=== PATIENT | male | born 1955 | race Caucasian/White ===

== ENCOUNTER 2022-04-11 11:35 | Emergency (ER) | payer MEDICARE ==
[~2022-04-11] VITALS: Ht 177.8 cm; Wt 77.1 kg
[2022-04-11 11:42] VITALS: BP_SYST 106; BP_SYST 156
--- NOTE | 2022-04-11 12:00 | NUR ---
PATIENT ALBER FROM HOME FELL LAST NIGHT AND HURT HIS HEAD, DENIED H/A AT THIS TIME AWAITING FOR EDP FOR INITIAL ASSESSMENT.
--- NOTE | 2022-04-11 12:06 | NUR ---
EDP SEEN PATIENT WITH ORDER ROCHELLE OUT.
--- NOTE | 2022-04-11 12:30 | NUR ---
PATIENT ASSISTED WITH URINAL.
[2022-04-11 12:57] VITALS: BP_SYST 112
--- NOTE | 2022-04-11 15:10 | NUR ---
ETA 1600 WITH CAM SPOKE TO CHELSEA CONNELL [facility] [employer]
--- NOTE | 2022-04-11 16:01 | NUR ---
AMBULANCE AT [facility] FOR TRANSPORTATION.
--- NOTE | 2022-04-11 16:08 | NUR ---
Patient given written and verbal discharge instructions and verbalizes understanding. ER MD discussed with patient the results and treatment provided. Patient in stable condition. ID arm band removed. IV catheter removed intact and dressing applied, no active bleeding. Rx of given. Patient educated on pain management and to follow up with PMD. Pain Scale0. Opportunity for questions provided and answered. Medication side effect fact sheet provided. LEFT WITH [facility].
== END 2022-04-11 16:08 | disposition home or self-care (01) ==
LOC: SED 11:35
DX: S09.90XA Unspecified injury of head, initial encounter (principal); I10 Essential (primary) hypertension; Z79.899 Other long term (current) drug therapy; W18.30XA Fall on same level, unspecified, initial encounter; Y93.89 Activity, other specified; Y92.89 Other specified places as the place of occurrence of the external cause; Y99.8 Other external cause status
CPT/HCPCS: 70450-TC; 76376; 99284

== ENCOUNTER 2022-08-25 02:04 | Emergency (ER) | payer MEDICARE ==
[2022-08-25 02:14] VITALS: BP_SYST 142
--- NOTE | 2022-08-25 02:15 | NUR ---
PT WAS BIB [facility], C/O SOB. PT ON 6L SIMPLE MASK, WITH ALBUTEROL TX. PER EMT, SPO2@92% ON ROOM AUR ON ARRIVAL. PT LABORED BREATHING, NOT ANSWERING QUESTIONS.
[2022-08-25 02:27] LABS: RED BLOOD CELL COUNT(AUTO) 4.79 MIL/uL (4.2-6.2)
[2022-08-25 02:31] LABS: BASOPHILS % (AUTO) 0.5 % (0.0-2.0); EOSINOPHILS # (AUTO) 0.2 K/uL (0.0-0.4); EOSINOPHILS % (AUTO) 2.2 % (0.0-4.0); HEMATOCRIT 42.2 % (36-54); HEMOGLOBIN 14.5 g/dL (14.0-18.0); LYMPHOCYTES # (AUTO) 1.7 K/uL (1.0-5.5); LYMPHOCYTES % (AUTO) 18.4 % (20.5-51.5); MEAN CORPUSCULAR HEMOGLOBIN 30 pg (27-31); MEAN CORPUSCULAR HGB CONC 34 % (32-36); MEAN CORPUSCULAR VOLUME 88 fL (79.0-98.0); MONOCYTES # (AUTO) 0.5 K/uL (0.0-1.0); MONOCYTES % (AUTO) 5.7 % (1.7-9.3); NEUTROPHILS # (AUTO) 6.6 K/uL (1.8-7.7); NEUTROPHILS % (AUTO) 73.2 % (40.0-70.0); PLATELET COUNT (AUTO) 188 K/uL (130-430); RED CELL DISTRIBUTION WIDTH 14.1 % (9.0-15.0)
[2022-08-25] MEDS ORDERED: cefTRIAXone 1 GM IVPB PREMIX 50 ML IV ONE (02:45)
[2022-08-25 03:35] LABS: BILIRUBIN,URINE NEGATIVE (NEGATIVE); CLARITY/URINE CLEAR (CLEAR); COLOR,URINE YELLOW (YELLOW); GLUCOSE,URINE NEGATIVE (NEGATIVE); KETONES,URINE NEGATIVE (NEGATIVE); LEUKOCYTE ESTERASE ,URINE NEGATIVE (NEGATIVE); NITRITE, URINE NEGATIVE (NEGATIVE); PROTEIN URINE NEGATIVE (NEGATIVE); UROBILINOGEN,URINE 0.2 (0.2-1.0)
[2022-08-25 04:03] LABS: BLOOD, URINE TRACE (NEGATIVE)
--- NOTE | 2022-08-25 04:41 | NUR ---
PT VSS, NAD, CONNECTED TO VS MONITOR. PT HAS EYES CLOSED APPEARS ASLEEP, NO COMPLAINTS SAFETY RAILS UP
[2022-08-25 05:01] LABS: ALANINE AMINOTRANSFERASE 16 U/L (12-78); ALBUMIN 3.8 g/dL (3.4-4.8); ANION GAP 11 (5-15); ASPARTATE AMINOTRANSFERASE 20 U/L (10-37); CALCIUM 8.9 mg/dL (8.4-11.0); CHLORIDE 102 mmol/L (98-107); CREATININE 0.78 mg/dL (0.55-1.30); GFR AFRICAN AMERICAN 127 mL/min (>90); GLUCOSE 103 mg/dL (70-99); TOTAL BILIRUBIN 0.5 mg/dL (0.0-1.0); UREA NITROGEN, BLOOD 16 mg/dL (8-21)
[2022-08-25] MEDS ORDERED: methylPREDNISolone SOD SUCC/PF 62.5 MG/ML VIAL IVP ONE (05:30)
--- NOTE | 2022-08-25 06:16 | NUR ---
PT APPEARS SLEEPING VSS, NAD, EVEN UNLABORED BREATHING SAFETY RAILS UP
--- NOTE | 2022-08-25 07:35 | NUR ---
REPORT GIVEN TO MALIK BANUELOS
--- NOTE | 2022-08-25 07:43 | NUR ---
Called [facility] per Dr. Watson's request. Dr. Barger is out but Dr. Fung will be calling back.
--- NOTE | 2022-08-25 08:09 | NUR ---
PT SET [facility] [phone] [facility] PAINTING [facility] ETA [phone]
--- NOTE | 2022-08-25 09:39 | NUR ---
PT CARE TRANFERRED TO [facility] WITH [facility]. PT STABLE FOR TRANFER
[2022-08-25 10:38] VITALS: BP_SYST 115
== END 2022-08-25 09:39 | disposition short-term general hospital (02) ==
LOC: SED 02:04
DX: J18.9 Pneumonia, unspecified organism (principal); R06.02 Shortness of breath; R07.9 Chest pain, unspecified; R09.02 Hypoxemia; J44.9 Chronic obstructive pulmonary disease, unspecified; I10 Essential (primary) hypertension; Z79.899 Other long term (current) drug therapy; Z20.822 Contact with and (suspected) exposure to COVID-19
CPT/HCPCS: 99285; 96365; 71045; 96375; 87426; 80053; 83880; 85025; 87040; 87086; 84484; 36415; 93005; 83605; 81003; 87804 ×2; J0696; J2930

== ENCOUNTER 2022-09-09 15:43 | Emergency (ER) | payer MEDICARE ==
[~2022-09-09] VITALS: Ht 170.2 cm; Wt 88.9 kg
[2022-09-09] MEDS ORDERED: NACL 0.9% 1,000 ML IV ONE (16:00)
[2022-09-09] MEDS ORDERED: ONDANSETRON HCL 4 MG/2 ML VIAL IVP ONE (16:00)
[2022-09-09] MEDS ORDERED: NALOXONE HCL 2 MG/2 ML SYR (NARCAN) IVP ONE (16:00)
--- NOTE | 2022-09-09 16:00 | NUR ---
Placed in room 04 . Placed on rn cardiac, blood pressure machine and pulse oximeter. To gown for exam. Side rails up. Report given to VIN HARDEN.
[2022-09-09 16:02] VITALS: BP_SYST 124
--- NOTE | 2022-09-09 16:02 | NUR ---
PATIENT BROUGHT IN ALS FROM HOME FOR TAKING AN EXTRA TABLET OF GABAPENTIN AND TRAZADONE. UNKNOWN DOSAGE. PATIENT IS LETHARGIC AND AROUSABLE TO VOICE. PATIENT ARRIVES WINNIE WITH HR IN THE 40S. NO ACUTE PAIN.
--- NOTE | 2022-09-09 16:05 | NUR ---
ER at bedside examining patient.
[2022-09-09] MEDS ORDERED: NALOXONE HCL 2 MG/2 ML SYR ONE (16:15)
[2022-09-09 16:26] LABS: BASOPHILS # (AUTO) 0.1 K/uL (0.0-0.2); BASOPHILS % (AUTO) 0.7 % (0.0-2.0); EOSINOPHILS # (AUTO) 0.1 K/uL (0.0-0.4); EOSINOPHILS % (AUTO) 0.9 % (0.0-4.0); HEMATOCRIT 40.2 % (36-54); HEMOGLOBIN 14.1 g/dL (14.0-18.0); LYMPHOCYTES # (AUTO) 1.4 K/uL (1.0-5.5); MEAN CORPUSCULAR HEMOGLOBIN 31 pg (27-31); MEAN CORPUSCULAR HGB CONC 35 % (32-36); MEAN CORPUSCULAR VOLUME 88 fL (79.0-98.0); MONOCYTES # (AUTO) 0.5 K/uL (0.0-1.0); MONOCYTES % (AUTO) 7.5 % (1.7-9.3); NEUTROPHILS # (AUTO) 5.2 K/uL (1.8-7.7); NEUTROPHILS % (AUTO) 71.9 % (40.0-70.0); PLATELET COUNT (AUTO) 164 K/uL (130-430); RED BLOOD CELL COUNT(AUTO) 4.56 MIL/uL (4.2-6.2); RED CELL DISTRIBUTION WIDTH 14.2 % (9.0-15.0); WHITE BLOOD COUNT (AUTO) 7.2 K/uL (4.8-10.8)
[2022-09-09 16:37] LABS: ALANINE AMINOTRANSFERASE 15 U/L (12-78); ALBUMIN 3.6 g/dL (3.4-4.8); ANION GAP 2 (5-15); ASPARTATE AMINOTRANSFERASE 16 U/L (10-37); CALCIUM 9.2 mg/dL (8.4-11.0); CHLORIDE 105 mmol/L (98-107); CREATININE 0.71 mg/dL (0.55-1.30); GFR AFRICAN AMERICAN 142 mL/min (>90); GLUCOSE 92 mg/dL (70-99); TOTAL BILIRUBIN 0.5 mg/dL (0.0-1.0); UREA NITROGEN, BLOOD 16 mg/dL (8-21)
[2022-09-09 16:51] LABS: THYROID STIMULATING HORMONE 2.06 uIu/mL (0.36-3.74)
[2022-09-09 16:53] LABS: ALCOHOL, BLOOD < 3 mg/dL (<10)
[2022-09-09 17:57] LABS: BILIRUBIN,URINE NEGATIVE (NEGATIVE); BLOOD, URINE NEGATIVE (NEGATIVE); CLARITY/URINE CLEAR (CLEAR); COLOR,URINE YELLOW (YELLOW); GLUCOSE,URINE NEGATIVE (NEGATIVE); KETONES,URINE NEGATIVE (NEGATIVE); LEUKOCYTE ESTERASE ,URINE NEGATIVE (NEGATIVE); NITRITE, URINE NEGATIVE (NEGATIVE); PROTEIN URINE NEGATIVE (NEGATIVE); UROBILINOGEN,URINE 0.2 (0.2-1.0)
--- NOTE | 2022-09-09 19:00 | NUR ---
RECEIVED FOR CARE AFTER REPORT. PLAN OF CARE EXPLAINED TO PT. AWAITING TRANSFER TO [facility].
--- NOTE | 2022-09-09 20:44 | NUR ---
REPORT CALLED TO RECEIVING ED TO VIN SOTOMAYOR. ALSO TRANSPORT HERE TO TAKE PT TO [facility].
[2022-09-09 20:46] VITALS: BP_SYST 133
--- NOTE | 2022-09-09 21:16 | NUR ---
EMS HERE FOR TRANSPORT TO [facility].
--- NOTE | 2022-09-09 21:17 | NUR ---
Patient to be transferred to [facility] . Is being transferred due to higher level of care. Receiving facility has accepting physician and available space. ER physician has signed transfer form. Patient or responsible green party has agreed to transfer and signed form. Patient belongings inventoried and will be sent with patient. Copy of nursing notes, lab reports, EKG, Physicians Orders and X-rays to be sent with patient. Report called to VIN SOTOMAYOR at receiving facility. Receiving physician is . ambulance service has been called for transfer. ETA is [phone].
[2022-09-09 22:31] LABS: BARBITURATE, URINE NEGATIVE (NEG <=200)
[2022-09-09 22:32] LABS: BENZODIAZEPINE, URINE NEGATIVE (NEG <=150); CANNABINOID, URINE NEGATIVE (NEG <=50); COCAINE, URINE NEGATIVE (NEG <=150); METHAMPHETAMINES SCREEN,URINE NEGATIVE (NEG <=500); OPIATE, URINE NEGATIVE (NEG <=100); PHENCYCLIDINE SCREEN,URINE NEGATIVE (NEG <=25); UR TRICYCLIC ANTIDEPRESSANTS NEGATIVE (NEG <=300); URINE AMPHETAMINE NEGATIVE (NEG <=500); URINE METHADONE NEGATIVE (NEG <=200); URINE OXYCODONE SCREEN NEGATIVE (NEG <=100); URINE PROPOXYPHENE SCREEN NEGATIVE (NEG <=300)
== END 2022-09-09 21:08 | disposition short-term general hospital (02) ==
LOC: SED 15:43
DX: R53.1 Weakness (principal); R00.1 Bradycardia, unspecified; J44.9 Chronic obstructive pulmonary disease, unspecified; I10 Essential (primary) hypertension; R41.82 Altered mental status, unspecified; Z79.899 Other long term (current) drug therapy
CPT/HCPCS: 99285; 96374; 70450; 71045; 96361; 96375; 80307; 80053; 82140; 83880; 84439; 84443; 85025; 87040; 87086; 84484; 36415; 93005; 76376; 83605; 81003; G0482; J2310; J2405; J7030

== ENCOUNTER 2023-07-28 13:19 | Emergency (ER) | payer MEDICARE ==
[~2023-07-28] VITALS: Ht 167.6 cm; Wt 88.5 kg
[2023-07-28 13:34] VITALS: BP_SYST 143; PULSE 95; RESP 12; TEMP 97.4
[2023-07-28 13:56] LABS: BASOPHILS % (AUTO) 0.4 % (0.0-2.0); EOSINOPHILS # (AUTO) 0.1 K/uL (0.0-0.4); EOSINOPHILS % (AUTO) 0.9 % (0.0-4.0); HEMOGLOBIN 13.8 g/dL (14.0-18.0); LYMPHOCYTES # (AUTO) 1.4 K/uL (1.0-5.5); LYMPHOCYTES % (AUTO) 18.6 % (20.5-51.5); MEAN CORPUSCULAR HEMOGLOBIN 32 pg (27-31); MEAN CORPUSCULAR HGB CONC 35 % (32-36); MEAN CORPUSCULAR VOLUME 89 fL (79.0-98.0); MONOCYTES # (AUTO) 0.5 K/uL (0.0-1.0); MONOCYTES % (AUTO) 6.5 % (1.7-9.3); NEUTROPHILS # (AUTO) 5.4 K/uL (1.8-7.7); NEUTROPHILS % (AUTO) 73.6 % (40.0-70.0); PLATELET COUNT (AUTO) 197 K/uL (130-430); RED BLOOD CELL COUNT(AUTO) 4.37 MIL/uL (4.2-6.2); RED CELL DISTRIBUTION WIDTH 13.9 % (9.0-15.0); WHITE BLOOD COUNT (AUTO) 7.3 K/uL (4.8-10.8)
[2023-07-28 14:06] LABS: ANION GAP 6 (5-15); CALCIUM 9.1 mg/dL (8.4-11.0); CARBON DIOXIDE 30 mmol/L (23-29); CHLORIDE 105 mmol/L (98-107); CREATININE 0.77 mg/dL (0.55-1.30); GFR AFRICAN AMERICAN 129 mL/min (>90); GLUCOSE 108 mg/dL (74-106); POTASSIUM 3.9 mmol/L (3.5-5.1); SODIUM SERUM 141 mmol/L (136-145); UREA NITROGEN, BLOOD 16 mg/dL (8-21)
[2023-07-28 14:14] LABS: GFR NON AFRICAN-AMERICAN 106 mL/min (>90)
[2023-07-28] MEDS ORDERED: GABA-529 PO (14:58)
[2023-07-28] MEDS ORDERED: LIP40 PO (14:58)
[2023-07-28] MEDS ORDERED: FURO20TA4 PO (14:58)
[2023-07-28] MEDS ORDERED: TAMS-11 PO (14:58)
[2023-07-28 16:54] LABS: BILIRUBIN,URINE NEGATIVE (NEGATIVE); BLOOD, URINE 1+ (NEGATIVE); COLOR,URINE YELLOW (YELLOW); GLUCOSE,URINE NEGATIVE (NEGATIVE); KETONES,URINE NEGATIVE (NEGATIVE); LEUKOCYTE ESTERASE ,URINE 3+ (NEGATIVE); NITRITE, URINE POSITIVE (NEGATIVE); PROTEIN URINE TRACE (NEGATIVE); UROBILINOGEN,URINE 0.2 (0.2-1.0)
[2023-07-28 16:57] LABS: CLARITY/URINE HAZY (CLEAR)
[2023-07-28 17:16] LABS: BACTERIA,URINE MANY /HPF (None Seen); WBC,URINE 50-80 /HPF (0-3)
[2023-07-28] MEDS: BACLOFEN 10 MG TABLET PO ONE (18:30)
[2023-08-05 10:13] VITALS: BP_SYST 135; PULSE 47; RESP 12; TEMP 96.9; O2SAT 97
== END 2023-07-28 17:30 | disposition short-term general hospital (02) ==
LOC: SED 13:19
DX: Z04.89 Encounter for examination and observation for other specified reasons (principal); R51.9 Headache, unspecified; J44.9 Chronic obstructive pulmonary disease, unspecified; I10 Essential (primary) hypertension; Z86.73 Personal history of transient ischemic attack (TIA), and cerebral infarction without residual deficits; Z79.899 Other long term (current) drug therapy; Z20.822 Contact with and (suspected) exposure to COVID-19
CPT/HCPCS: 36415; 70450-TC; 71045; 80048; 81000; 81001; 81015; 82550; 83880; 84484; 85025; 87086; 87186; 99285